=== PATIENT | female | born 1955 | race Caucasian/White ===

== ENCOUNTER → 2021-05-14 | Outpatient (CLI) | payer OTHER | LOC: HEART 5 10:00 | DX: R06.02 Shortness of breath (principal) | CPT/HCPCS: 93306 ==

== ENCOUNTER → 2021-06-05 | Outpatient (CLI) | payer OTHER | LOC: HEART 5 14:54 | DX: G47.33 Obstructive sleep apnea (adult) (pediatric) (principal); R00.2 Palpitations; I48.0 Paroxysmal atrial fibrillation ==